=== PATIENT | female | born 1950 | race Caucasian/White ===

== ENCOUNTER → 2018-02-26 | Outpatient (CLI) | payer BC ==
--- NOTE | 2018-02-26 17:38 | RAD ---
EXAM: Head CT without contrast; maxillofacial bone CT without contrast. HISTORY: Headache. TECHNIQUE: Computed tomographic images of the head and maxillofacial bones were obtained without contrast. *One or more of the following individualized dose reduction techniques were utilized for this examination: 1. Automated exposure control. 2. Adjustment of the mA and/or kV according to patient size. 3. Use of iterative reconstruction technique. COMPARISON: None. FINDINGS: There is no acute or subacute extra-axial or intraparenchymal hemorrhage. There is no mass effect or midline shift. There is no hydrocephalus. There are subtle areas of hypodensity within the cerebral white matter, likely due to chronic small vessel disease. There is mild cerebral volume loss. The mastoid air cells are clear. No calvarial lesion is seen. There is moderate to severe right maxillary sinus mucosal thickening with obstruction of the right ostiomeatal unit. The left ostiomeatal unit is patent. There is mild leftward nasal septal deviation. There is minimal inferior left maxillary sinus mucosal thickening. There is a small right maxillary sinus air-fluid level. The orbits are unremarkable. The temporomandibular joints are intact. There are multiple missing teeth. IMPRESSION: 1. No acute intracranial finding. 2. Moderate to severe right maxillary sinus disease with obstruction of the ostiomeatal unit and a small maxillary sinus air-fluid level. Electronically signed by: Mojgan Lloyd MD (02/26/2018 5:34 PM) [facility]
== END | disposition home or self-care (01) ==
LOC: CT 16:45
PROVIDERS: ATTEND Physician Assistant
DX: J32.0 Chronic maxillary sinusitis (principal); J34.2 Deviated nasal septum
CPT/HCPCS: 70450; 70486

== ENCOUNTER → 2019-05-13 | Outpatient (CLI) | payer BC ==
--- NOTE | 2019-05-13 11:30 | RAD ---
CHEST PA LATERAL History: Fall 2 weeks ago, anterior chest and sternal pain Comparison: 12/05/2009 two-view chest x-ray exam. Findings: Frontal and lateral views of the chest were obtained. The cardiomediastinal silhouette is normal. Pulmonary vasculature is normal. The lungs are clear other than interstitial thickening in the left infrahilar region which has remained similar to the prior exam. No pleural effusion or pneumothorax is seen. There is no acute bone abnormality. Dextroconvex thoracic spine noted. IMPRESSION: No acute cardiopulmonary process. Electronically signed by: Kevin Perry MD (05/13/2019 11:27 AM) [facility]
== END | disposition home or self-care (01) ==
LOC: DXRAD 11:00
PROVIDERS: ATTEND Family Medicine
DX: R07.89 Other chest pain (principal); R91.8 Other nonspecific abnormal finding of lung field
CPT/HCPCS: 71046

== ENCOUNTER 2021-02-21 10:27 | Emergency (ER) | payer MEDICARE ==
[~2021-02-21] VITALS: Ht 177.8 cm; Wt 65.7 kg
--- NOTE | 2021-02-21 11:25 | PHYS DOC ---
Adult General Chief Complaint Chief Complaint: COUGH HPI HPI Patient is a 70-year-old male patient presenting to the ED today complaining of a productive cough with nasal congestion, symptoms began Monday and got worse today. Patient states the congestion is making it had to breathe. Patient states she has pain to the left side of her ribs, she rates the pain as slight only on coughing, she states she has had similar pain with a sinus infection. Denies anything relieving the pain. Reports similar symptoms before and had to be treated with antibiotics. Reports being fully vaccinated against Covid. She states she is due for booster vaccine in February 2021. Patient states she has tried [id number] remedies with no relief (CHANO FOFANA TYPO MACHINE OPERATOR) Review of Systems Review of Systems Constitutional: Denies fever or chills [] Eyes: Denies change in visual acuity, redness, or eye pain [] HENT: Reports nasal congestion, denies sore throat [] Respiratory: Reports cough, denies shortness of breath [] Cardiovascular: No additional information not addressed in HPI [] GI: Denies abdominal pain, nausea, vomiting, bloody stools or diarrhea [] : Denies dysuria or hematuria [] Musculoskeletal: Denies back pain or joint pain [] Integument: Denies rash or skin lesions [] Neurologic: Denies headache, focal weakness or sensory changes [] All other systems were reviewed and found to be within normal limits, except as documented in this note. (CHANO FOFANA TYPO MACHINE OPERATOR) Physical Exam Physical Exam Constitutional: Well developed, well nourished, no acute distress, non-toxic appearance. [] HENT: Normocephalic, atraumatic, bilateral external ears normal, oropharynx moist, no oral exudates, patient is nasally congested. Eyes: PERRLA, EOMI, conjunctiva normal, no discharge. [] Neck: Normal range of motion, no tenderness, supple, no stridor. [] Cardiovascular:Heart rate regular rhythm, no murmur [] Lungs & Thorax: Diminished breath sounds to the left Abdomen: Bowel sounds normal, soft, no tenderness, no masses, no pulsatile masses. [] Skin: Warm, dry, no erythema, no rash. [] Back: No tenderness, no CVA tenderness. [] Extremities: No tenderness, no cyanosis, no clubbing, ROM intact, no edema. [] Neurologic: Alert and oriented X 3, normal motor function, normal sensory function, no focal deficits noted. [] Psychologic: Affect normal, judgement normal, mood normal. [] (CHANO FOFANA APRN) EKG EKG [] (CHANO FOFANA APRN) Radiology/Procedures Radiology/Procedures []PROCEDURE: CHEST AP ONLY EXAM: Chest, single view. HISTORY: Cough. COMPARISON: 05/13/2019 FINDINGS: A frontal view of the chest obtained. There is no infiltrate, pleural effusion or pneumothorax. There are chronic appearing interstitial changes. The heart is normal in size. There is hyperinflation likely due to emphysema. IMPRESSION: No acute pulmonary finding. Electronically signed by: Mojgan Sequeira MD (02/21/2021 11:29 AM) [id number] DICTATED AND SIGNED BY: MOJGAN SEQUEIRA MD DATE: 02/21/211127 CC: RAYMOND BONNER MD; EMERGENCY,DEPARTMENT; CHANO FOFANA APRN ~MTH0 0 (CHANO FOFANA APRN) Heart Score C/O Chest Pain: N/A Risk Factors: Risk Factors: DM, Current or recent (<one month) smoker, HTN, HLP, family history of CAD, obesity. Risk Scores: Risk Factors: DM, Current or recent (<one month) smoker, HTN, HLP, family history of CAD, obesity. (CHANO FOFANA APRN) Course & Med Decision Making Course & Med Decision Making Pertinent Labs and Imaging studies reviewed. (See chart for details) This is a 70-year-old female patient presented with cough and nasal congestion that began on Monday, symptoms got worse today reports this feels like a previous sinus infection. Patient is afebrile, O2 sats 99% on room air. Chest x-ray negative for pneumonia. Discharged with an community. Follow-up with PCP in 1 week, provided return precautions (CHANO FOFANA APRN) Dragon Disclaimer Dragon Disclaimer This electronic medical record was generated, in whole or in part, using a voice recognition dictation system. (CHANO FOFANA APRN) Attending Co-Sign The patient was seen and interviewed as well as examined at the bedside. The chart was reviewed. The case was discussed. Agree with the plan of care. (GISELA CENTENO DO) Departure Departure: Impression: Primary Impression: Acute sinusitis Additional Impression: Cough Disposition: HOME / SELF CARE / HOMELESS Condition: STABLE Referrals: RAYMOND BONNER MD (PCP) follow up next week Patient Instructions: Cough, Adult, [id number], Sinusitis Additional Instructions: You were evaluated in the emergency room for cough and nasal congestion. We sent you home with Augmentin to cover you for signs infection and cough syrup. Use the medicines prescribed as ordered. Please follow-up with your own primary care doctor in the course of this week, come back to the ED at any point symptoms worsen Scripts Guaifenesin/Codeine Phosphate (GUAIFENESIN-CODEINE SYRUP) 118 Ml Liquid 5 ML PO Q6HRS, #120 ML Prov: CHANO FOFANA APRN 02/21/21 Amoxicillin/Potassium Clav (AUGMENTIN 875-125 TABLET) 1 Each Tablet 1 TAB PO BID for 10 Days, #20 TAB 0 Refills Prov: CHANO FOFANA APRN 02/21/21 Problem Qualifiers Primary Impression: Acute sinusitis Sinusitis location: maxillary Recurrence: non-recurrent Qualified Codes: J01.00 - Acute maxillary sinusitis, unspecified CHANO FOFANA APRN Feb 21, 2021 11:25 GISELA CENTENO DO Feb 23, 2021 12:56
[2021-02-21 11:30] VITALS: BP 153/84
--- NOTE | 2021-02-21 11:31 | RAD ---
EXAM: Chest, single view. HISTORY: Cough. COMPARISON: 05/13/2019 FINDINGS: A frontal view of the chest obtained. There is no infiltrate, pleural effusion or pneumotho rax. There are chronic appearing interstitial changes. The heart is normal in size. There is hyperinf lation likely due to emphysema. IMPRESSION: No acute pulmonary finding. Electronically signed by: Mojgan Lloyd MD (02/21/2021 11:29 AM) [id number]
[2021-02-21] MEDS ORDERED: AMOX1TAB61 PO (11:53)
[2021-02-21] MEDS ORDERED: GUAI118L13 PO (11:53)
== END 2021-02-21 12:05 | disposition home or self-care (01) ==
LOC: ER 10:27
DX: J01.90 Acute sinusitis, unspecified (principal)
CPT/HCPCS: 71045; 99283